=== PATIENT | female | born 1970 | race African-American/Black ===

== ENCOUNTER 2019-09-14 20:00 | Emergency (ER) | payer OTHER ==
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
[2019-09-14 20:18] VITALS: BP 139/82; PULSE 94; TEMP 97.9; BMI 35.2
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
== END 2019-09-14 22:21 | disposition home or self-care (01) ==
LOC: JERFT 20:00
DX: S40.012A Contusion of left shoulder, initial encounter (principal); M25.551 Pain in right hip; M25.552 Pain in left hip; S60.311A Abrasion of right thumb, initial encounter; V09.29XA Pedestrian injured in traffic accident involving other motor vehicles, initial encounter; Y92.414 Local residential or business street as the place of occurrence of the external cause; Y93.89 Activity, other specified; Y99.8 Other external cause status
CPT/HCPCS: 73030-TC-LT-FY; 73140-TC-RT-FY; 73523-TC-FY; 99281-25